=== PATIENT | female | born 2005 | race Caucasian/White ===

== ENCOUNTER 2023-01-15 11:46 | Observation (INO) | payer MEDICAID ==
[~2023-01-15] VITALS: Ht 170.2 cm; Wt 69.9 kg
[2023-01-15] MEDS ORDERED: BETAMETHASONE ACET/BETAMET 30 MG/5 ML VIAL IM NR (13:19)
[2023-01-17 10:06] LABS: SJOGRENS ANTI SS-A 0.3 AI (0.0-0.9); SJOGRENS ANTI SS-B < 0.2 AI (0.0-0.9)
[2023-01-19 13:06] LABS: PARVOVIRUS B19 HUMAN IGM 0.1 index (0.0-0.8)
[2023-01-20 09:07] LABS: HGB A2 2.5 % (1.8-3.2)
== END 2023-01-15 14:00 | disposition home or self-care (01) ==
LOC: 8 EST LDRP 11:46
PROVIDERS: ADMIT Obstetrics & Gynecology; ATTEND Obstetrics & Gynecology
DX: O36.8330 Maternal care for abnormalities of the fetal heart rate or rhythm, third trimester, not applicable or unspecified (principal); Z20.822 Contact with and (suspected) exposure to COVID-19; Z3A.30 30 weeks gestation of pregnancy
CPT/HCPCS: 59025; 83021; 85660; 86038; 86235; 86645; 86694; 86747; 86762; 86778; 87426; 96372; G0378; J0702; 99281

== ENCOUNTER 2023-01-17 08:26 | Observation (INO) | payer MEDICAID ==
[~2023-01-17] VITALS: Ht 162.6 cm; Wt 69.9 kg
== END 2023-01-17 12:00 | disposition home or self-care (01) ==
LOC: 8 EST LDRP 08:26
PROVIDERS: ADMIT Obstetrics & Gynecology; ATTEND Obstetrics & Gynecology
DX: O26.893 Other specified pregnancy related conditions, third trimester (principal); R52 Pain, unspecified; O36.8130 Decreased fetal movements, third trimester, not applicable or unspecified; Z3A.30 30 weeks gestation of pregnancy
CPT/HCPCS: 59025; 99281; G0378

== ENCOUNTER 2023-01-19 15:37 | Observation (INO) | payer MEDICAID ==
[~2023-01-19] VITALS: Ht 170.2 cm; Wt 68.0 kg
[2023-01-19] MEDS ORDERED: BETAMETHASONE ACET/BETAMET 30 MG/5 ML VIAL IM NR (16:45)
== END 2023-01-19 17:00 | disposition home or self-care (01) ==
LOC: 8EST NSY 15:37 → 8 EST A/PP 16:27
PROVIDERS: ADMIT Obstetrics & Gynecology; ATTEND Obstetrics & Gynecology
DX: O36.8330 Maternal care for abnormalities of the fetal heart rate or rhythm, third trimester, not applicable or unspecified (principal); O42.913 Preterm premature rupture of membranes, unspecified as to length of time between rupture and onset of labor, third trimester; Z3A.30 30 weeks gestation of pregnancy
CPT/HCPCS: 59025; G0378; J0702; 99281

== ENCOUNTER 2023-01-24 13:27 | Observation (INO) | payer MEDICAID ==
[~2023-01-24] VITALS: Ht 167.6 cm; Wt 68.0 kg
== END 2023-01-24 15:00 | disposition home or self-care (01) ==
LOC: 8 EST LDRP 13:27
PROVIDERS: ADMIT Obstetrics & Gynecology; ATTEND Obstetrics & Gynecology
DX: O42.92 Full-term premature rupture of membranes, unspecified as to length of time between rupture and onset of labor (principal); Z3A.32 32 weeks gestation of pregnancy
CPT/HCPCS: 59025; 76815; 76818; G0378

== ENCOUNTER 2023-01-31 12:56 | Observation (INO) | payer MEDICAID ==
[~2023-01-31] VITALS: Ht 170.2 cm; Wt 71.7 kg
== END 2023-01-31 16:55 | disposition home or self-care (01) ==
LOC: 8 EST LDRP 12:56
PROVIDERS: ADMIT Obstetrics & Gynecology; ATTEND Obstetrics & Gynecology
DX: O42.92 Full-term premature rupture of membranes, unspecified as to length of time between rupture and onset of labor (principal); O99.513 Diseases of the respiratory system complicating pregnancy, third trimester; J90 Pleural effusion, not elsewhere classified; Z3A.31 31 weeks gestation of pregnancy
CPT/HCPCS: 59025; 76805; 76818; G0378; 99281